=== PATIENT | male | born 1995 | race Caucasian/White ===

== ENCOUNTER 2021-03-25 01:21 | Emergency (ER) | payer OTHER ==
[~2021-03-25] VITALS: Ht 182.9 cm; Wt 106.0 kg
[2021-03-25 01:35] VITALS: BP 127/70
--- NOTE | 2021-03-25 02:16 | PHYS DOC ---
Past Medical History Past Medical History: No Pertinent History Past Surgical History: No Surgical History Smoking Status: Never Smoker Alcohol Use: None Drug Use: None General Adult EDM: Chief Complaint: ANKLE PROBLEM HPI: HPI: Patient is a 25 year old M who is presenting to the ED after tripping on black ice and twisting his Right ankle. He says he was walking when his right ankle twisted inward and he felt a pop and felt numbness on the lateral side of his foot and up to his calf and knee. He said that he cant walk on it, and that it hurts to move his foot in all directions as well as his toes. Patient has never injured his ankle before or had any surgeries. Review of Systems: Review of Systems: Constitutional: Denies fever or chills Eyes: Denies redness or eye pain HENT: Denies nasal congestion or sore throat Respiratory: Denies cough or shortness of breath Cardiovascular: Denies chest pain or palpitations GI: Denies abdominal pain, nausea, or vomiting : Denies dysuria or hematuria Integument: Denies rash or skin lesions Neurologic: Denies headache, focal weakness or sensory changes Complete systems were reviewed and found to be within normal limits, except as documented in this note. Heart Score: C/O Chest Pain: N/A Allergies: Allergies: Allergies Coded Allergies Type Severity Reaction Last Updated Verified No Known Drug Allergies 03/25/21 No Physical Exam: PE: Constitutional: Well developed, well nourished, non-toxic appearance HENT: Normocephalic, atraumatic Eyes: Conjunctiva normal, no discharge Neck: Normal range of motion, no tenderness, supple Lungs & Thorax: No respiratory distress, equal chest rise and fall Abdomen: Soft, no tenderness Skin: Warm, dry, no erythema, no rash Back: No tenderness, no CVA tenderness Neurologic: Alert and oriented X 3, normal motor function, normal sensory function, no focal deficits noted Psychologic: Affect normal, judgment normal Current Patient Data: Vital Signs: Vital Signs Date Time Temp Pulse Resp B/P (MAP) Pulse Ox O2 Delivery O2 Flow Rate FiO2 03/25/21 01:35 97.9 87 16 127/70 (89) 95 97.9 EKG: EKG: [] Radiology/Procedures: Radiology/Procedures: [] Course & Med Decision Making: Course & Med Decision Making Pertinent Labs and Imaging studies reviewed. (See chart for details) Patient is a 25 y/o M who presents to the ED after tripping and twisting his Right ankle on black ice. Due to the patient not being able to walk on his foot getting an xray which showed no brakes or other bony injuries. Patient will be discharged with RICE precautions, discussion to do over the counter ibuprofen, and nurys bandage wrap his ankle as well as a prescription for crutches (and work note). Frank Disclaimer: Frank Disclaimer: This electronic medical record was generated, in whole or in part, using a voice recognition dictation system. Splinting Splinting : Location: Right ankle Pre-Made Type: NURYS bandage Pre-Proc Neuro Vasc Exam: normal Post-Proc Neuro Vasc Exam: normal, unchanged from pre-exam Departure Departure Impression: Primary Impression: Right ankle sprain Qualified Codes: S93.401A - Sprain of unspecified ligament of right ankle, initial encounter Disposition: HOME / SELF CARE / HOMELESS Condition: STABLE Referrals: MATTEO DRAKE DPM Patient Instructions: Ankle Sprain, [id number], Crutch Use, [id number], RICE - Routine Care for Injuries, [id number] Additional Instructions: Ice area of discomfort 20 minutes on then leave off for next 20 minutes. Repeat several times daily for next 2 days. May also use [id number] Tylenol in addition to prescribed pain medication. Scripts Crutch (CRUTCH) 1 Each Each PAIR MC UD, #1 DISPENSE: 1 PAIR OF CRUTCHES. PATIENT TO USE INSTRUCTED BY PROVIDER. Prov: SIDDHARTHA WILKERSON DO 03/25/21 Ibuprofen (IBUPROFEN) 600 Mg Tablet 600 MG PO TID PRN PRN for PAIN, #20 TAB Prov: SIDDHARTHA WILKERSON DO 03/25/21 SIDDHARTHA WILKERSON DO Mar 25, 2021 02:16
[2021-03-25] MEDS ORDERED: CRUT1EAC3 MC (02:29)
[2021-03-25] MEDS ORDERED: IBUP-1007 PO (02:29)
--- NOTE | 2021-03-25 02:42 | RAD ---
XR EXAM OF ANKLE_RIGHT 3VIEWS DATE: 03/25/2021 1:54 AM INDICATION: pain to lateral malleolus COMPARISON: None. FINDINGS: Bones: There is no evidence of acute fracture or dislocation. Joints: The ankle mortise is congruent. No widening of the distal tibiofibular syndesmosis. Miscellaneous: Lateral ankle soft tissue swelling IMPRESSION: No acute fracture. Electronically signed by: Ward Jamison MD (03/25/2021 2:39 AM) JYASON
== END 2021-03-25 02:41 | disposition home or self-care (01) ==
LOC: ER 01:21
DX: S93.401A Sprain of unspecified ligament of right ankle, initial encounter (principal); W18.40XA Slipping, tripping and stumbling without falling, unspecified, initial encounter; Y93.01 Activity, walking, marching and hiking; Y92.89 Other specified places as the place of occurrence of the external cause; Y99.8 Other external cause status
CPT/HCPCS: 73610; 99283; A6450

== ENCOUNTER 2021-07-03 16:44 | Emergency (ER) | payer OTHER ==
[~2021-07-03] VITALS: Ht 182.9 cm; Wt 100.0 kg
[~2021-07-03 16:44] MED LIST: CRUT1EAC3 MC; IBUP-1007 PO
--- NOTE | 2021-07-03 17:58 | PHYS DOC ---
Past Medical History Past Medical History: No Pertinent History Past Surgical History: No Surgical History Smoking Status: Never Smoker Alcohol Use: None Drug Use: None General Adult EDM: Chief Complaint: MEDICAL CLEARANCE HPI: HPI: Patient is a 26-year-old male that was brought today to the emergency department from [facility] [employer] with complaint of left leg/left back pain. Patient states that he has been having left leg left back pain on and off over the last 6 weeks, and he has had numbness and tingling in his left leg multiple times over the last 6 weeks, he said today's "incident" with the police has exacerbated his back pain causing his left leg to be numb and tingling. Patient can ambulate. Patient denies bowel or bladder issues such as loss of control or inability to start stream. Review of Systems: Review of Systems: Constitutional: Denies fever or chills. [] Eyes: Denies change in visual acuity. [] HENT: Denies nasal congestion or sore throat. [] Respiratory: Denies cough or shortness of breath. [] Cardiovascular: Denies chest pain or edema. [] GI: Denies abdominal pain, nausea, vomiting, bloody stools or diarrhea. [] : Denies dysuria. [] Musculoskeletal: Left back, hip, leg pain Integument: Denies rash. [] Neurologic: Denies headache, focal weakness or sensory changes. [] Endocrine: Denies polyuria or polydipsia. [] Lymphatic: Denies swollen glands. [] Psychiatric: Denies depression or anxiety. [] Heart Score: C/O Chest Pain: No Risk Factors: Risk Factors: DM, Current or recent (<one month) smoker, HTN, HLP, family history of CAD, obesity. Risk Scores: Score 0 - 3: 2.5% MACE over next 6 weeks - Discharge Home Score 4 - 6: 20.3% MACE over next 6 weeks - Admit for Clinical Observation Score 7 - 10: 72.7% MACE over next 6 weeks - Early Invasive Strategies Current Medications: Current Medications Medications (Trade) Dose Ordered Sig/Amara Start Time Stop Time Status Last Admin Dose Admin Ketorolac Tromethamine (Toradol Im) 60 mg 1X ONCE 07/03/21 17:45 07/03/21 17:49 DC Orphenadrine Citrate (Norflex) 60 mg 1X ONCE 07/03/21 17:45 07/03/21 17:49 DC Allergies: Allergies: Allergies Coded Allergies Type Severity Reaction Last Updated Verified No Known Drug Allergies 03/25/21 No Physical Exam: PE: Constitutional: Well developed, well nourished, no acute distress, non-toxic appearance. [] HENT: Normocephalic, atraumatic, bilateral external ears normal, oropharynx moist, no oral exudates, nose normal. [] Eyes: PERRLA, EOMI, conjunctiva normal, no discharge. [] Neck: Normal range of motion, no tenderness, supple, no stridor. [] Cardiovascular:Heart rate regular rhythm, no murmur [] Lungs & Thorax: Bilateral breath sounds clear to auscultation [] Abdomen: Bowel sounds normal, soft, no tenderness, no masses, no pulsatile masses. [] Skin: Abrasions to lower legs warm, dry, no erythema, no rash. [] Back: Left tenderness with palpation over the left piriformis left hip area, no lacerations, abrasions, contusions, or ecchymosis noted in the back area no pain over the spine with palpation, bruises noted to the upper back Extremities: Left LEG strength is within normal limits, patient reports a decreased sensation in the left foot, patellar jerk reflex is 2+ bilaterally, dorsalis pedis pulse is 2+ cap refills less than 2 seconds, patient has full range of motion of his left foot, left knee. Neurologic: Alert and oriented X 3, normal motor function, normal sensory function, no focal deficits noted. [] Psychologic: Affect normal, judgement normal, mood normal. [] Current Patient Data: Vital Signs: Vital Signs Date Time Temp Pulse Resp B/P (MAP) Pulse Ox O2 Delivery O2 Flow Rate FiO2 07/03/21 17:27 98.5 72 18 128/75 (92) 97 Room Air 98.5 EKG: EKG: [] Radiology/Procedures: Radiology/Procedures: REASON: LEFT LEG PAIN PROCEDURE: CT LUMBAR SPINE WO CONTRAST Examination: CT lumbar spine without contrast HISTORY: History of left leg pain COMPARISON: None available Technique: Axial CT images of the lumbar spine was performed without contrast. Coronal and sagittal reformats are performed Exposure: One or more of the following individualized dose reduction techniques were utilized for this examination: 1. Automated exposure control 2. Adjustment of the mA and/or kV according to patient size 3. Use of iterative reconstruction technique FINDINGS: The lumbar vertebral body heights are maintained. The bilateral facets are well aligned. Transitional anatomy identified in the left lumbosacral junction, best visualized series 8 image 31. Minimal disc bulge identified at L4-L5 vertebral levels causing mild anterior thecal sac impression. The caliber of the aorta grossly appears unremarkable No evidence of intrarenal collecting system calculi or hydronephrosis identified. IMPRESSION: 1.Transitional anatomy identified in the left lumbosacral junction, best visualized series 8 image 31. Correlate for low back pain/Bertolotti's syndrome. 2. Minimal disc bulge L4-L5 vertebral level. Electronically signed by: Saúl dAkins MD (07/03/2021 6:22 PM) [id number] [] Course & Med Decision Making: Course & Med Decision Making Pertinent Labs and Imaging studies reviewed. (See chart for details) 1899 reassessment of patient patient states the stiffness in his back is improving, I did consult with Dr. Jiang he went in to reexamine the patient, he is okay with sending the patient home for further evaluation by neurosurgery orthopedic doctor. Patient will be given a prescription for Motrin 600 mg to be taken 1 tablet every 6 hours as needed for pain, patient will also be given the names of Dr. Law the orthopedic doctor and Dr. Rowell the neurosurgeon so that he may follow-up on an outpatient basis for further management of his back pain. Patient will have an updated tetanus since he has not had one in quite some time due to the abrasions located on his lower extremities. Frank Disclaimer: Frank Disclaimer: This electronic medical record was generated, in whole or in part, using a voice recognition dictation system. Departure Departure Impression: Primary Impression: Low back pain potentially associated with radiculopathy Additional Impression: Abrasion Disposition: 01 HOME / SELF CARE / HOMELESS Condition: STABLE Referrals: NO PCP (PCP) ABDULAZIZ ESCOABR MD, TERRY L Jr. DO Patient Instructions: Abrasions, Back Pain, Adult Additional Instructions: Motrin 600 mg take 1 tablet every 6 hours as needed for pain [id number] Lidoderm patches 12 hours on to the affected area 12 hours off Ice 20 minutes on 3-4 times daily as needed to help with localized pain relief. Patient is to sleep in a position of comfort, and have reasonable accommodations for comfort to be made Follow-up with Dr. Law or Dr. Rowell for further evaluation of your low back pain Return to the emergency department if you have any loss of bowel or bladder control, inability to start a stream or defecate, or inability to use left leg MARIA EUGENIA SIERRA APRN Jul 03, 2021 17:58
[2021-07-03] MEDS: KETOROLAC 60 MG/2 ML VIAL. IM ONE (18:16)
[2021-07-03] MEDS: ORPHENADRINE CITRATE 60 MG/2 ML VIAL. IM ONE (18:16)
--- NOTE | 2021-07-03 18:24 | RAD ---
Examination: CT lumbar spine without contrast HISTORY: History of left leg pain COMPARISON: None available Technique: Axial CT images of the lumbar spine was performed without contrast. Coronal and sagittal r eformats are performed Exposure: One or more of the following individualized dose reduction techniques were utilized for thi s examination: 1. Automated exposure control 2. Adjustment of the mA and/or kV according to patient size 3. Use of iterative reconstruction technique FINDINGS: The lumbar vertebral body heights are maintained. The bilateral facets are well aligned. Transitional anatomy identified in the left lumbosacral junction, best visualized series 8 image 31. Minimal disc bulge identified at L4-L5 vertebral levels causing mild anterior thecal sac impression. The caliber of the aorta grossly appears unremarkable No evidence of intrarenal collecting system calculi or hydronephrosis identified. IMPRESSION: 1.Transitional anatomy identified in the left lumbosacral junction, best visualized series 8 image 31 . Correlate for low back pain/Bertolotti's syndrome. 2. Minimal disc bulge L4-L5 vertebral level. Electronically signed by: Saúl Adkins MD (07/03/2021 6:22 PM) [id number]
[2021-07-03] MEDS: DIPHTH,PERTUSS(ACELL),TET TOX 0.5 ML DISP.SYRIN. VAX IM ONE (19:59)
== END 2021-07-03 20:04 | disposition home or self-care (01) ==
LOC: EEVIPCON 16:44 → ER 16:44
DX: S20.222A Contusion of left back wall of thorax, initial encounter (principal); M51.17 Intervertebral disc disorders with radiculopathy, lumbosacral region; M25.552 Pain in left hip; X58.XXXA Exposure to other specified factors, initial encounter; Y93.89 Activity, other specified; Y92.89 Other specified places as the place of occurrence of the external cause; Y99.8 Other external cause status
CPT/HCPCS: 72131; 90471; 90715; 96372; 99284; J1885; J2360